=== PATIENT | female | born 1985 | race Caucasian/White ===

== ENCOUNTER 2023-10-28 22:09 | Inpatient (IN) | payer BC ==
[~2023-10-28] VITALS: Ht 162.6 cm; Wt 78.9 kg
[2023-10-28 22:13] VITALS: O2SAT 98
[2023-10-28] MEDS: SODIUM CHLORIDE 0.9% 1,000 ML IV ONE (22:15)
[2023-10-28 22:56] LABS: BASOPHILS % 0.2 % (0.0-2.0); EOSINOPHILS % 0.2 % (0.0-5.0); HEMATOCRIT. 29.5 % (36.0-48.0); HEMOGLOBIN. 9.9 g/dL (12.0-16.0); MEAN CORPUSCULAR HGB CONC 33.6 g/dL (31.0-37.0); MEAN CORPUSCULAR VOLUME 95.3 fL (81.0-99.0); MEAN PLATELET VOLUME 10.4 fl (7.4-10.4); MONOCYTES % 3.8 % (2.0-8.0); NEUTROPHILS % 85.8 % (40.0-76.0); PLATELET 180 x1000/uL (130-400); RED BLOOD CELL COUNT 3.09 mill/uL (4.2-5.4); RED CELL DISTRIBUTION WIDTH 14.1 % (11.6-14.6); WHITE BLOOD COUNT 9.5 x1000/uL (4.5-11.0)
[2023-10-28 23:00] LABS: CHLORIDE 106 mEq/L (98-107); POTASSIUM 3.6 mEq/L (3.5-5.1); SODIUM 138 mEq/L (136-145)
[2023-10-28 23:01] LABS: CARBON DIOXIDE 26 mEq/L (21-32)
[2023-10-28 23:02] LABS: CALCIUM 8.4 mg/dL (8.7-10.4)
[2023-10-28 23:06] LABS: CREATININE 0.7 mg/dL (0.6-1.0); GLUCOSE 186 mg/dL (70-105); UREA NITROGEN BLOOD 10 mg/dL (9-23)
[2023-10-28 23:07] LABS: HCG SCREEN POSITIVE
[2023-10-28 23:19] LABS: B-HCG QUANTITATIVE 53933 mIU/mL (<3)
[2023-10-29 01:10] LABS: HEMATOCRIT 30.8 % (36.0-48.0); HEMOGLOBIN 10.5 g/dL (12.0-16.0)
[2023-10-29 01:25] LABS: LACTIC ACID 2.5 mmol/L (0.4-2.0)
[2023-10-29] MEDS: OXYTOCIN 30 UNITS/500ML NS 500 ML IV ONE (02:45)
[2023-10-29] MEDS: SODIUM CHLORIDE 0.9% 1,000 ML IV ONE (03:50)
[2023-10-29 09:00] VITALS: BP 94/64; PULSE 83; RESP 10; TEMP 36.3918; O2SAT 100
[2023-10-29] MEDS ORDERED: SODIUM CHLORIDE 0.9% 1,000 ML IV SCH ×2 (09:30→13:30)
[2023-10-29] MEDS ORDERED: IPRATROPIUM/ALBUTEROL 0.5-3(2.5)MG/3ML NEB HHN PRN (09:45)
[2023-10-29] MEDS ORDERED: ONDANSETRON HCL 4MG/2ML INJ IV PRN (09:45)
[2023-10-29] MEDS ORDERED: DIPHENHYDRAMINE 50MG/ML VIAL IV PRN (09:45)
[2023-10-29] MEDS ORDERED: ACETAMINOPHEN 325MG TABLET PO PRN (09:45)
[2023-10-29 09:53] VITALS: BP 94/64; PULSE 90; RESP 13; TEMP 36.696
[2023-10-29 10:00] VITALS: BP 99/59; PULSE 86; RESP 17; O2SAT 100
[2023-10-29] MEDS: SODIUM CHLORIDE 0.9% 1,000 ML IV SCH (10:50)
[2023-10-29 12:00] VITALS: BP 102/70; PULSE 80; RESP 13; TEMP 37.11408; O2SAT 100
[2023-10-29 12:57] LABS: HEMATOCRIT 29.6 % (36.0-48.0); HEMOGLOBIN 9.7 g/dL (12.0-16.0); MEAN CORPUSCULAR HEMOGLOBIN 31.5 pg (28.0-32.0); MEAN CORPUSCULAR HGB CONC 32.9 g/dL (31.0-37.0); MEAN CORPUSCULAR VOLUME 95.9 fL (81.0-99.0); PLATELET 181 x1000/uL (130-400); RED BLOOD CELL COUNT 3.09 mill/uL (4.2-5.4); WHITE BLOOD COUNT 7.3 x1000/uL (4.5-11.0)
[2023-10-29 14:00] VITALS: BP 91/53; PULSE 89; RESP 15; O2SAT 98
[2023-10-29] MEDS: MISOPROSTOL 200MCG TABLET PO NR (14:31)
[2023-10-29 16:00] VITALS: BP 95/48; PULSE 91; RESP 15; O2SAT 100
== END 2023-10-29 17:11 | disposition left against medical advice (07) | DRG 779 ==
LOC: ER 22:32 → 5EST 10-29 03:27 → EDBEDREQSVC 10-29 03:51 → EDBEDREQ 10-29 03:51 → EDBEDREQDT 10-29 03:51 → EDBEDREQTM 10-29 03:51
PROVIDERS: ADMIT Internal Medicine; ATTEND Internal Medicine
DX: O03.4 Incomplete spontaneous abortion without complication (principal); O00.90 Unspecified ectopic pregnancy without intrauterine pregnancy; I95.9 Hypotension, unspecified; Z53.29 Procedure and treatment not carried out because of patient's decision for other reasons
CPT/HCPCS: 36415; 76801; 80048; 83605; 84702; 84703; 85014; 85018; 85025; 85027; 86850; 86900; 99291; J7030; J2590